=== PATIENT | male | born 1995 | race Caucasian/White ===

== ENCOUNTER 2023-08-01 00:11 | Emergency (ER) | payer OTHER ==
[~2023-08-01] VITALS: Ht 172.7 cm; Wt 72.7 kg
[2023-08-01 00:24] VITALS: TEMP 97.7
[2023-08-01] MEDS ORDERED: Ketorolac 30 MG/ML VIAL IV ONE (00:30)
[2023-08-01] MEDS ORDERED: Ondansetron 4 MG/2 ML VIAL IV ONE (00:30)
[2023-08-01] MEDS ORDERED: NS 1,000 ML IV ONE (00:45)
[2023-08-01 00:56] LABS: COLLECTION METHOD CLEAN CATCH
[2023-08-01 01:21] LABS: ALBUMIN 4.4 gm/dL (3.5-5.0); BILIRUBIN,TOTAL 0.2 mg/dL (0.2-1.2); CALCIUM 9.3 mg/dL (8.4-10.2); CREATININE, serum 0.92 mg/dL (0.72-1.25); POTASSIUM 3.3 mmol/L (3.5-4.5); TOTAL PROTEIN 7.6 gm/dL (6.2-8.1)
[2023-08-01 01:31] LABS: HEMATOCRIT 40.3 % (42.0-52.0); HEMOGLOBIN 14.3 g/dl (13.5-18.0); MEAN CELL VOLUME 80 fl (80.0-100.0); MEAN CORPUSCULAR HEMOGLOBIN 28 pg (27-31); MEAN CORPUSCULAR HGB CONC 36 g/dl (33.0-37.0); MEAN PLATELET VOLUME 10.3 fl (7.4-10.4); PLATELET COUNT 340 K/mm3 (130-400); RED BLOOD COUNT 5.05 M/mm3 (4.20-5.60); REDCELL DISTRIBUTION WIDTH-CV 12.3 % (11.5-14.5)
[2023-08-01 01:32] LABS: PH 5.5 (5.0-8.5); URINE APPEARANCE Clear (CLEAR/HAZY); URINE BLOOD 3+ (NEGATIVE); URINE COLOR Yellow (YELLOW); URINE GLUCOSE Negative (NEGATIVE); URINE KETONE Negative (NEGATIVE); URINE NITRATE Negative (NEGATIVE); URINE PROTEIN(semi-quant) 1+ (NEGATIVE); URINE UROBILINOGEN 0.2 E.U/dL (0.2-1.0)
[2023-08-01 01:33] LABS: SQUAMOUS EPITHELIAL 0-2 /hpf (0-10)
[2023-08-01 01:35] LABS: MUCOUS Present (NOT PRESENT); URINE BACTERIA Occasional /hpf (NONE SEEN); URINE CALCIUM OXALATE CRYSTAL Present (NOT PRESENT)
[2023-08-01] MEDS ORDERED: Morphine 4 MG/ML VIAL IV ONE ×2 (02:00→04:15)
[2023-08-01 02:15] LABS: BAND 1 % (0-10); EOSINOPHIL 5 % (0-4); NEUTROPHILS 30 % (42.0-75.2)
[2023-08-01 02:16] LABS: MICROCYTOSIS 1+; PLATELET ESTIMATE NORMAL (NORMAL)
[2023-08-01 02:17] LABS: LYMPHOCYTE 59 % (20.0-51.0)
[2023-08-01] MEDS ORDERED: TYLENOL W/COD1 UDTAB PO (03:39)
[2023-08-01] MEDS ORDERED: FLOMAX 0.40.4 MG/CAP PO (03:41)
[2023-08-01 04:05] VITALS: BP 142/62; PULSE 72
[2023-08-01] MEDS ORDERED: ZOFRAN 4MG T4 MG/TAB PO (04:28)
[2023-08-01 08:24] LABS: PATHOLOGY DIFF REVIEW OK
== END 2023-08-01 04:30 | disposition home or self-care (01) ==
LOC: COL.ER 00:11
PROVIDERS: Emergency Medicine
DX: N13.2 Hydronephrosis with renal and ureteral calculous obstruction (principal); Z98.890 Other specified postprocedural states
CPT/HCPCS: J1885; J2270; J2405; J7030

== ENCOUNTER 2023-11-18 20:26 | Emergency (ER) | payer OTHER ==
[~2023-11-18] VITALS: Ht 172.7 cm; Wt 72.7 kg
[~2023-11-18 20:26] MED LIST: FLOMAX 0.40.4 MG/CAP PO; TYLENOL W/COD1 UDTAB PO; ZOFRAN 4MG T4 MG/TAB PO
[2023-11-18] MEDS ORDERED: NAPROSYN500 MG PO (20:53)
[2023-11-18 21:05] VITALS: BP 137/85; PULSE 82; TEMP 98.4
== END 2023-11-18 21:11 | disposition home or self-care (01) ==
LOC: COL.ER 20:26
DX: M25.562 Pain in left knee (principal); G89.29 Other chronic pain